=== PATIENT | male | born 1960 | race Hispanic/Latino ===

== ENCOUNTER 2021-11-18 09:04 | Day surgery (SDC) | payer OTHER ==
[2021-11-16 08:59] LABS: BASOPHILS % (AUTO) 0.7 % (0.0-5.0); EOSINOPHILS % (AUTO) 5.8 % (0.0-8.0); HEMATOCRIT 43.1 % (42-54); LYMPHOCYTES % (AUTO) 24.5 % (21.0-51.0); MEAN CORPUSCULAR HEMOGLOBIN 27.2 pg (27.0-33.0); MEAN CORPUSCULAR HGB CONC 33.6 g/dL (32.0-36.0); MEAN CORPUSCULAR VOLUME 80.9 fL (79-99); MONOCYTES % (AUTO) 6.6 % (3.0-13.0); PLATELET COUNT (AUTO) 221 K/uL (130-400); RED BLOOD CELL COUNT(AUTO) 5.33 MIL/uL (4.50-6.20); RED CELL DISTRIBUTION WIDTH 13.6 % (11.0-15.5); WHITE BLOOD COUNT (AUTO) 7.1 K/uL (4.8-10.8)
[2021-11-16 09:00] LABS: APPEARANCE,URINE Clear (CLEAR); BILIRUBIN,URINE Negative (NEGATIVE); COLOR,URINE Yellow (YELLOW); GLUCOSE, URINE (UA) >=1000 mg/dL (NEGATIVE); KETONES,URINE Negative (NEGATIVE); LEUKOCYTE ESTERASE ,URINE Negative (NEGATIVE); NITRATE,URINE Negative (NEGATIVE); OCCULT BLOOD,URINE Negative (NEGATIVE); PROTEIN,URINE Trace mg/dL (NEGATIVE)
[2021-11-16 09:07] LABS: BACTERIA,URINE Rare /HPF (None Seen); RBC,URINE 0-1 /HPF (0-1); SQUAMOUS EPITHELIAL CELL,UR Moderate /HPF (0-2); WBC,URINE 0-1 /HPF (0-1)
[2021-11-16 09:15] LABS: INR 2.3 (0.85-1.15); PROTHROMBIN TIME 23.2 SEC (9.6-11.6)
[2021-11-16 09:16] LABS: PARTIAL THROMBOPLASTIN TIME 37.9 SEC (26.3-35.5)
[2021-11-16 10:44] LABS: CREATININE 0.7 mg/dL (0.5-1.5); POTASSIUM 4.1 mmol/L (3.5-5.1)
[2021-11-17 10:38] VITALS: BP 127/75
[2021-11-18] VITALS (10 sets, daily range): BP systolic 125–165; BP diastolic 78–95
[~2021-11-18] VITALS: Ht 177.8 cm; Wt 113.9 kg
[~2021-11-18 09:04] MED LIST: AMIO200T68 PO; ATOR10 PO; LIRA0.6P SQ; LISI5TAB21 PO; METF-444 PO; METO25TA6 PO; METO50TA18 PO; TAMS-1 PO; WARF-57 PO; WARF7.5T49 PO
[2021-11-18] MEDS ORDERED: 0.9%NACL 1000ML 1,000 ML IV ONE (09:31)
[2021-11-18] MEDS ORDERED: HEPARIN 10,000 UNIT/10ML (1,000 UNIT/ML) VIAL ONE (10:46)
[2021-11-18] MEDS ORDERED: IOHEXOL 350 MG/ML 100ML INFUS..BTL IV ONE (10:46)
[2021-11-18] MEDS ORDERED: NITROGLYCERIN 50MG VIAL ONE (10:46)
[2021-11-18] MEDS ORDERED: FENTANYL CITRATE PF 50 MCG/1 ML 2ML VIAL ONE (10:46)
[2021-11-18] MEDS ORDERED: MIDAZOLAM HCL 1 MG/ML 2ML VIAL ONE (10:46)
[2021-11-18] MEDS ORDERED: LIDOCAINE HCL 400MG/20ML VIAL ONE (10:47)
[2021-11-18 10:59] LABS: INR 2.39 (0.85-1.15); PROTHROMBIN TIME 24.1 SEC (9.6-11.6)
[2021-11-18] MEDS ORDERED: BIVALIRUDIN 250 MG/VIAL IV ONE ×2 (11:10→11:11)
[2021-11-18] MEDS ORDERED: 0.9%NACL 1000ML 1,000 ML IV SCH (12:00)
[2021-11-18] MEDS ORDERED: GLUCAGON 1MG KIT 1 MG ML IM PRN (12:00)
[2021-11-18] MEDS ORDERED: DEXTROSE 50%-WATER 50 ML DISP.SYRIN IV PRN (12:00)
[2021-11-18] MEDS ORDERED: IOHEXOL-350 50ML VIAL IV ONE (12:10)
[2021-11-18] MEDS ORDERED: TRAMADOL HCL 50 MG TABLET ONE (15:21)
== END 2021-11-18 18:00 | disposition home or self-care (01) ==
LOC: DAH 09:04
PROVIDERS: ATTEND Student in an Organized Health Care Education/Training Program
DX: I25.119 Atherosclerotic heart disease of native coronary artery with unspecified angina pectoris (principal); I11.0 Hypertensive heart disease with heart failure; I50.21 Acute systolic (congestive) heart failure; I48.20 Chronic atrial fibrillation, unspecified; E11.8 Type 2 diabetes mellitus with unspecified complications; I45.10 Unspecified right bundle-branch block; E78.5 Hyperlipidemia, unspecified; E66.9 Obesity, unspecified; F17.200 Nicotine dependence, unspecified, uncomplicated; Z79.82 Long term (current) use of aspirin; Z79.899 Other long term (current) drug therapy; Z79.84 Long term (current) use of oral hypoglycemic drugs; Z68.35 Body mass index [BMI] 35.0-35.9, adult; Z79.01 Long term (current) use of anticoagulants
CPT/HCPCS: 36415 ×2; 71045; 80048; 81001; 82948 ×3; 85025; 85610 ×2; 85730; 93005; 93458; A4215; A4216; A4221; A4222; A4223 ×3; A4606; A4657; A4663; C1760; C1894 ×2; J0583; J1644; J2250; J3010; J3490 ×2; J7030 ×2; Q9965; Q9967 ×2; 99156; 99157

== ENCOUNTER 2021-12-07 06:13 | Day surgery (SDC) | payer OTHER ==
[2021-12-04 13:02] LABS: BASOPHILS % (AUTO) 0.6 % (0.0-5.0); EOSINOPHILS % (AUTO) 3.8 % (0.0-8.0); HEMATOCRIT 39.5 % (42-54); LYMPHOCYTES % (AUTO) 24.7 % (21.0-51.0); MEAN CORPUSCULAR HEMOGLOBIN 28.2 pg (27.0-33.0); MEAN CORPUSCULAR HGB CONC 34.4 g/dL (32.0-36.0); MEAN CORPUSCULAR VOLUME 81.8 fL (79-99); MONOCYTES % (AUTO) 8.2 % (3.0-13.0); NEUTROPHILS % (AUTO) 62.3 % (40.0-77.0); PLATELET COUNT (AUTO) 220 K/uL (130-400); RED BLOOD CELL COUNT(AUTO) 4.83 MIL/uL (4.50-6.20); WHITE BLOOD COUNT (AUTO) 9.5 K/uL (4.8-10.8)
[2021-12-04 13:10] LABS: POTASSIUM 4.7 mmol/L (3.5-5.1)
[2021-12-04 13:13] LABS: INR 1.38 (0.85-1.15); PROTHROMBIN TIME 14.6 SEC (9.6-11.6)
[2021-12-04 13:14] LABS: PARTIAL THROMBOPLASTIN TIME 32.1 SEC (26.3-35.5)
[2021-12-04 14:14] VITALS: BP 99/62
[2021-12-07] VITALS (19 sets, daily range): BP systolic 103–159; BP diastolic 57–88
[~2021-12-07] VITALS: Ht 177.8 cm; Wt 111.7 kg
[~2021-12-07 06:13] MED LIST changes: +APIX5TAB PO; -ATOR10 PO; +ATOR40TA69 PO; -WARF-57 PO; -WARF7.5T49 PO
[2021-12-07] MEDS ORDERED: LIDOCAINE HCL 2% VISCOUS 15 ML UDCUP ONE (07:13)
[2021-12-07] MEDS ORDERED: FLUMAZENIL 0.1MG/1ML 5ML VIAL IV ONE (07:13)
[2021-12-07] MEDS ORDERED: NALOXONE HCL 0.4 MG/1 ML ML ONE (07:14)
[2021-12-07] MEDS ORDERED: FENTANYL CITRATE PF 50 MCG/1 ML 2ML VIAL ONE (07:15)
[2021-12-07] MEDS ORDERED: MIDAZOLAM HCL 1 MG/ML 2ML VIAL ONE (07:15)
[2021-12-07] MEDS ORDERED: 0.9%NACL 1000ML 1,000 ML IV SCH (08:00)
== END 2021-12-07 09:45 | disposition home or self-care (01) ==
LOC: DAH 06:13
PROVIDERS: ATTEND Student in an Organized Health Care Education/Training Program
DX: I48.0 Paroxysmal atrial fibrillation (principal); I45.10 Unspecified right bundle-branch block; I11.0 Hypertensive heart disease with heart failure; I50.21 Acute systolic (congestive) heart failure; E11.8 Type 2 diabetes mellitus with unspecified complications; E78.5 Hyperlipidemia, unspecified; E66.9 Obesity, unspecified; F17.200 Nicotine dependence, unspecified, uncomplicated; Z79.82 Long term (current) use of aspirin; Z68.35 Body mass index [BMI] 35.0-35.9, adult; Z72.89 Other problems related to lifestyle; Z79.01 Long term (current) use of anticoagulants; Z79.899 Other long term (current) drug therapy
CPT/HCPCS: 36415; 80048; 82948; 85025; 85610; 85730; 92960; 93005 ×2; 93312; 93325; A4215; A4216; A4221; A4222; A4223 ×3; A4606; A4615; A4657; A4663; J2250; J3010; J7030; 96374; 99152; 99153; J2310; J3490

== ENCOUNTER 2022-01-21 05:34 | Day surgery (SDC) | payer OTHER ==
[2022-01-19 13:35] LABS: BASOPHILS % (AUTO) 0.7 % (0.0-5.0); EOSINOPHILS % (AUTO) 3.4 % (0.0-8.0); HEMATOCRIT 44.4 % (42-54); LYMPHOCYTES % (AUTO) 19.7 % (21.0-51.0); MEAN CORPUSCULAR HEMOGLOBIN 28.1 pg (27.0-33.0); MEAN CORPUSCULAR HGB CONC 33.6 g/dL (32.0-36.0); MEAN CORPUSCULAR VOLUME 83.8 fL (79-99); MONOCYTES % (AUTO) 8.3 % (3.0-13.0); NEUTROPHILS % (AUTO) 67.8 % (40.0-77.0); PLATELET COUNT (AUTO) 197 K/uL (130-400)
[2022-01-19 13:45] LABS: CREATININE 0.8 mg/dL (0.5-1.5); POTASSIUM 4.8 mmol/L (3.5-5.1)
[2022-01-19 13:52] LABS: INR 1.09 (0.85-1.15); PROTHROMBIN TIME 11.8 SEC (9.6-11.6)
[2022-01-19 13:53] LABS: PARTIAL THROMBOPLASTIN TIME 31.9 SEC (26.3-35.5)
[2022-01-20 08:57] VITALS: BP 120/66
[~2022-01-21] VITALS: Ht 177.8 cm; Wt 110.9 kg
[2022-01-21] VITALS (15 sets, daily range): BP systolic 91–164; BP diastolic 47–84
[~2022-01-21 05:34] MED LIST changes: +ATOR20TA65 PO; -ATOR40TA69 PO; +METO-391 PO; -METO25TA6 PO; -METO50TA18 PO
[2022-01-21] MEDS ORDERED: LIDOCAINE HCL 2% VISCOUS 15 ML UDCUP ONE (07:22)
[2022-01-21] MEDS ORDERED: PROPOFOL 10 MG/ML 20ML VIAL IV ONE ×2 (07:25→07:29)
[2022-01-21] MEDS ORDERED: LIDOCAINE PF 100MG/5ML (2%) SYRINGE 5ML ONE (07:29)
[2022-01-21] MEDS ORDERED: 0.9%NACL 1000ML 1,000 ML IV SCH (08:00)
== END 2022-01-21 09:35 | disposition home or self-care (01) ==
LOC: DAH 05:34
PROVIDERS: ATTEND Student in an Organized Health Care Education/Training Program
DX: I48.20 Chronic atrial fibrillation, unspecified (principal); I11.0 Hypertensive heart disease with heart failure; I50.21 Acute systolic (congestive) heart failure; E11.8 Type 2 diabetes mellitus with unspecified complications; I45.10 Unspecified right bundle-branch block; F17.210 Nicotine dependence, cigarettes, uncomplicated; E78.5 Hyperlipidemia, unspecified; E66.9 Obesity, unspecified; Z79.01 Long term (current) use of anticoagulants; Z98.890 Other specified postprocedural states; Z68.35 Body mass index [BMI] 35.0-35.9, adult; Z72.89 Other problems related to lifestyle
CPT/HCPCS: 36415; 80048; 82948; 85025; 85610; 85730; 87635; 92960; 93005 ×2; 93312; 93325; A4215; A4216; A4221; A4222; A4223 ×3; A4606; A4663; A7002; J2001; J2704 ×2; J7030 ×2

== ENCOUNTER 2022-10-28 13:27 | Emergency (ER) | payer OTHER ==
[~2022-10-28] VITALS: Ht 177.8 cm; Wt 116.6 kg
[~2022-10-28 13:27] MED LIST changes: -AMIO200T68 PO; +CYCL7.5T27 PO; +EMPA25TA PO; +FLUT16H NASAL; +FURO40TA7 PO; -LIRA0.6P SQ; +LORA10TA7 PO; -METF-444 PO; +METF-527 PO; -METO-391 PO; +METO50TA9 PO; +POTA-192 PO
[2022-10-28 15:13] LABS: BASOPHILS % (AUTO) 0.7 % (0.0-5.0); EOSINOPHILS % (AUTO) 2.4 % (0.0-8.0); LYMPHOCYTES % (AUTO) 16.7 % (21.0-51.0); MEAN CORPUSCULAR HEMOGLOBIN 28.3 pg (27.0-33.0); MEAN CORPUSCULAR HGB CONC 33.7 g/dL (32.0-36.0); MEAN CORPUSCULAR VOLUME 83.8 fL (79-99); MONOCYTES % (AUTO) 10.7 % (3.0-13.0); NEUTROPHILS % (AUTO) 69.1 % (40.0-77.0); PLATELET COUNT (AUTO) 172 K/uL (130-400); RED BLOOD CELL COUNT(AUTO) 5.13 MIL/uL (4.50-6.20); RED CELL DISTRIBUTION WIDTH 12.8 % (11.0-15.5); WHITE BLOOD COUNT (AUTO) 8.3 K/uL (4.8-10.8)
[2022-10-28 15:25] LABS: CREATININE 1.9 mg/dL (0.5-1.5); POTASSIUM 4.1 mmol/L (3.5-5.1)
[2022-10-28 15:33] LABS: ALBUMIN 3.6 g/dL (3.5-5.0); TOTAL PROTEIN, SERUM 7.3 g/dL (6.0-8.3)
[2022-10-28 15:36] LABS: B-TYPE NATRIURETIC PEPTIDE 20 pg/mL (0-100)
[2022-10-28] MEDS ORDERED: 0.9%NACL 1000ML 1,000 ML IV ONE (16:30)
[2022-10-28 17:36] VITALS: BP 109/65
== END 2022-10-28 17:41 | disposition home or self-care (01) ==
LOC: EDH 13:27
DX: E86.0 Dehydration (principal); I48.92 Unspecified atrial flutter; E11.9 Type 2 diabetes mellitus without complications; E78.00 Pure hypercholesterolemia, unspecified; I48.91 Unspecified atrial fibrillation; I51.9 Heart disease, unspecified; Z79.899 Other long term (current) drug therapy; Z79.84 Long term (current) use of oral hypoglycemic drugs; Z98.890 Other specified postprocedural states
CPT/HCPCS: 99285; 96360; 71045; 84484; 80053; 83880; 85025; 36415; 93005; J7030

== ENCOUNTER 2022-12-21 05:46 | Day surgery (SDC) | payer OTHER ==
[2022-12-17 09:29] LABS: BASOPHILS % (AUTO) 0.5 % (0.0-5.0); EOSINOPHILS % (AUTO) 4.7 % (0.0-8.0); HEMATOCRIT 46.1 % (42-54); LYMPHOCYTES % (AUTO) 24.9 % (21.0-51.0); MEAN CORPUSCULAR VOLUME 85.1 fL (79-99); MONOCYTES % (AUTO) 9.9 % (3.0-13.0); NEUTROPHILS % (AUTO) 59.3 % (40.0-77.0); PLATELET COUNT (AUTO) 203 K/uL (130-400); RED BLOOD CELL COUNT(AUTO) 5.42 MIL/uL (4.50-6.20); RED CELL DISTRIBUTION WIDTH 13.5 % (11.0-15.5); WHITE BLOOD COUNT (AUTO) 5.8 K/uL (4.8-10.8)
[2022-12-17 09:37] LABS: POTASSIUM 4.6 mmol/L (3.5-5.1)
[2022-12-17 09:39] LABS: PROTHROMBIN TIME 10.9 SEC (9.6-11.6)
[2022-12-17 09:41] LABS: PARTIAL THROMBOPLASTIN TIME 31.3 SEC (26.3-35.5)
[2022-12-17 09:46] VITALS: BP 140/79
[2022-12-21] VITALS (9 sets, daily range): BP systolic 113–145; BP diastolic 63–81
[~2022-12-21] VITALS: Ht 177.8 cm; Wt 115.9 kg
[~2022-12-21 05:46] MED LIST changes: -CYCL7.5T27 PO; -FURO40TA7 PO; -LORA10TA7 PO; -METF-527 PO; +METF-910 PO; +METO-391 PO; -METO50TA9 PO; -POTA-192 PO
[2022-12-21] MEDS: 0.9%NACL 1000ML 1,000 ML IV SCH (06:38)
[2022-12-21] MEDS ORDERED: LIDOCAINE HCL 400MG/20ML VIAL ONE (13:27)
[2022-12-21] MEDS ORDERED: MEPERIDINE-PF 25 MG/ML SYG ONE ×2 (13:52→14:25)
[2022-12-21] MEDS ORDERED: MIDAZOLAM HCL 1 MG/ML 2ML VIAL ONE ×2 (13:53→14:26)
== END 2022-12-21 18:11 | disposition home or self-care (01) ==
LOC: DAH 05:46
PROVIDERS: ATTEND Internal Medicine Cardiovascular Disease
DX: I48.3 Typical atrial flutter (principal); I11.0 Hypertensive heart disease with heart failure; I50.23 Acute on chronic systolic (congestive) heart failure; I48.11 Longstanding persistent atrial fibrillation; I25.10 Atherosclerotic heart disease of native coronary artery without angina pectoris; I25.2 Old myocardial infarction; E78.5 Hyperlipidemia, unspecified; E11.9 Type 2 diabetes mellitus without complications; F17.210 Nicotine dependence, cigarettes, uncomplicated; Z79.01 Long term (current) use of anticoagulants; Z79.84 Long term (current) use of oral hypoglycemic drugs; Z86.16 Personal history of COVID-19
CPT/HCPCS: 80048; 85025; 85610; 85730; 36415; 93005; 93653; 82948 ×3; C1894 ×2; C1732 ×2; A4649 ×2; J3490; J7030; J2250 ×2; J2175 ×2; J1644; A4215; A4222; A4221; A4663; A4216; A4606; A4223 ×3; 99156; 99157

== ENCOUNTER → 2023-09-28 | Outpatient (CLI) | payer OTHER | END | disposition home or self-care (01) | LOC: SHCH 09:22 | PROVIDERS: ATTEND Student in an Organized Health Care Education/Training Program | DX: I11.9 Hypertensive heart disease without heart failure (principal); E11.9 Type 2 diabetes mellitus without complications; R06.02 Shortness of breath | CPT/HCPCS: 93306 ==